=== PATIENT | male | born 2000 | race Caucasian/White ===

== ENCOUNTER 2020-07-28 17:13 | Emergency (ER) | payer SELFPAY ==
--- NOTE | 2020-07-28 | XR_ITS ---
EXAMINATION: XR ANKLE, LEFT CLINICAL INFORMATION: Pain. Swelling. COMPARISON: None TECHNIQUE: AP, lateral, and mortise views of the left ankle. FINDINGS: The bones and soft tissues are normal. No fracture. Alignment is anatomic. Joint spaces are maintained. No joint effusion. IMPRESSION: Normal left ankle.
[2020-07-28 18:08] VITALS: BP 107/63; PULSE 64; RESP 18; TEMP 37.1; O2SAT 99; BMI 23.1
--- NOTE | 2020-07-28 18:56 | ED.LOWEXIN ---
HPI - Extremity Injury (Lower) General Chief Complaint: Extremity Injury, Lower Stated Complaint: ANKLE INJ Time Seen by Provider: 07/28/20 18:51 Source: patient Mode of arrival: ambulatory Limitations: no limitations History of Present Illness HPI Narrative: 19-year-old female presenting to the ED after twisting his left ankle backwards while playing basketball. Denies any head injury or loss of consciousness or any other symptoms complaints or concerns at this time. Related Data Previous Rx's Medication Instructions Recorded ibuprofen 800 mg PO Q8H PRN #14 tab 07/28/20 Allergies Allergy/AdvReac Type Severity Reaction Status Date / Time No Known Allergies Allergy Verified 07/28/20 17:17 [No Known Allergies*] Review of Systems Review of Systems: Yes all other systems are reviewed and are negative Musculoskeletal: Musculoskeletal: Reports as per HPI, Reports abnormal gait ( Limping due to pain), Denies atrophy, Denies deformity, Reports arthralgias, Reports joint swelling, Reports limited range of motion, Denies loss of height, Denies muscle weakness, Denies numbness, Denies stiffness and Denies tingling Neurologic: Reports abnormal gait ( Limping due to pain), Denies numbness and Denies tingling PMFSH Past Medical History Attestation statement: The following information was validated with the patient. Social History Social History Smoked in Last 30 Days: No Use of substances other than those prescribed or required for medical reasons: No Substance Use Type: Marijuana Substance Use Frequency: Weekly Advance Directives: No Advance Directives Information Provided: Yes Physical Exam Vital Signs and I&O and Narrative: Vital Signs and I&O: Vital Signs Temp 98.7 F 07/28/20 18:08 Pulse 64 07/28/20 18:08 Resp 18 07/28/20 18:08 BP 107/63 07/28/20 18:08 Pulse Ox 99 07/28/20 18:08 Intake & Output 07/28/20 07/28/20 07/29/20 06:59 18:59 06:59 Weight 73 kg Body Mass Index 23.1 Const: General: cooperative, healthy appearing, comfortable, no acute distress, well developed, alert, awake and Physically active Nutritional Appearance: average body habitus and well nourished Orientation/consciousness: patient oriented x3 Limitations: no limitations HENMT: Head: Yes normal to inspection, Yes No palpable skull fracture present, Yes normocephalic and Yes atraumatic Ears: hearing grossly normal bilaterally General nose exam: Normal external nose present Face and sinus: Yes normal facial exam Mouth: moist mucous membranes Eyes: General: appearance normal, both eyes and all related structures Visual García: normal visual garcía by confrontation Alignment and Position: alignment normal Periorbital: periorbital findings normal Eyelids: Yes eyelids normal Conjunctivae: conjunctivae normal Sclerae: sclerae normal Pupils: Equal, round and reactive pupils present EOM: EOMs intact bilaterally Neck: Neck: Yes normal visual inspection, Yes full ROM, Yes no lymphadenopathy, Yes no meningeal signs, Yes trachea midline and Yes supple Chest: Chest palpation & inspection: normal inspection of the chest Resp: Effort & Inspection: normal respiratory effort and able to speak in complete sentences Auscultation: clear to auscultation bilaterally, no crackles, no rales, no rhonchi and no wheezes Cardio: Rate: regular rate Rhythm: regular rhythm Heart sounds: S1 normal heart sound present and S2 normal heart sound present Peripheral pulses: Peripheral pulses 2+ throughout GI: Inspection: Yes normal to inspection Palpation (GI): Soft to palpation, nontender and No hepatosplenomegaly present Percussion: Yes normal to percussion Auscultation: normal bowel sounds : General: Yes no CVA tenderness Back/Spine/Pelvis: Back: no CVA tenderness Cervical Spine: normal cervical lordosis and cervical ROM normal Thoracic/Lumbar Spine: thoracic and lumbar spine normal to inspection and thoraco-lumbar ROM normal Skin: General skin exam: no rashes or lesions noted, elasticity normal and turgor normal Trauma: no lacerations or abrasions Wounds: no wounds Hair: normal Nails: normal Neuro: General: patient oriented x3 and no meningeal signs Cranial nerves: Yes CN's II-XII intact bilaterally and Yes Equal, round and reactive pupils present Cognition (Neuro): normal cognition Gait exam (Neuro): Normal gait present Motor exam (neuro): 5/5 motor strength present throughout Extrem: General: Yes normal to inspection, Yes full ROM, Yes capillary refill normal, Yes no clubbing, cyanosis or edema, No no pedal edema, No no calf tenderness, Yes normal gait and No edema Right upper extremity: normal to inspection, full ROM and normal capillary refill; no edema Left upper extremity: normal to inspection, full ROM and normal capillary refill; no edema Right lower extremity: normal to inspection, full ROM and normal capillary refill; no edema Left lower extremity: normal to inspection, full ROM, normal capillary refill and ankle Details: normal to inspection, tenderness Location: of the lateral malleolus, of the medial malleolus and posteriorly, swelling Details: laterally and medially and normal ROM; no abrasions, no lacerations, no ecchymosis, no crepitus, no foreign bodies, no penetrating wound and achilles tendon exam normal; no edema Psych: Appearance: grossly normal and well kempt Mental Status: mental status grossly normal Speech and movement: Normal speech and movement present and Clear speech present Affect: normal affect Attitude: cooperative Thought process: Normal thought process present Thought content: Normal thought content present Insight: Good insight present (Psych) Judgement: Good judgement present (Psych) MDM - Extremity Injury (Lower) Differential Diagnosis Differential diagnosis: Likely ankle sprain and strain Medical Records Attestation: I reviewed the patient's medical records. Imaging Data xray: Radiologist's impression: IMPRESSION: Normal left ankle. Discharge Plan Discharge Clinical Impression: Ankle sprain and strain Patient Disposition: Home, Self-Care Instructions: Ankle Sprain (ED), Crutch Instructions (ED) Prescriptions: New ibuprofen 800 mg tablet 800 mg PO Q8H PRN (Reason: pain) Qty: 14 RF: 0 Referrals: Jennifer Ryan MD [Physician] - 2 weeks (If symptoms persist for longer than 2-3 weeks you will need repeat imaging possibly an MRI) Print Language: Singaporean
== END 2020-07-28 19:15 | disposition home or self-care (01) ==
PROVIDERS: Emergency Provider Internal Medicine
DX: S93.402A Sprain of unspecified ligament of left ankle, initial encounter (principal); M25.572 Pain in left ankle and joints of left foot; X50.1XXA Overexertion from prolonged static or awkward postures, initial encounter; Y93.01 Activity, walking, marching and hiking; Y92.9 Unspecified place or not applicable; Y99.9 Unspecified external cause status
CPT/HCPCS: 73600; 96360; 99283; 99284

== ENCOUNTER 2021-05-24 15:52 | Outpatient (REF) | payer OTHER, SELFPAY | END 2021-05-24 15:53 | disposition home or self-care (01) | LOC: HO.LAB 15:52 | PROVIDERS: Visit Provider Internal Medicine | DX: Z20.822 Contact with and (suspected) exposure to COVID-19 (principal) | CPT/HCPCS: C9803; U0003; U0005 ==

== ENCOUNTER 2021-11-19 16:57 | Emergency (ER) | payer SELFPAY ==
[2021-11-19 18:03] VITALS: BP 120/72; PULSE 77; RESP 16; TEMP 36.9; O2SAT 100; BMI 29.5
[2021-11-19 19:38] VITALS: BP 138/92; PULSE 85; RESP 12; TEMP 36.8; O2SAT 99
--- NOTE | 2021-11-19 20:33 | ED_ITS ---
HPI - Skin/Abscess/Foreign Bdy General Chief complaint: Skin/Abscess/Foreign Body Stated complaint: rt hand finger ?infected Time Seen by Provider: 11/19/21 20:33 Source: patient Mode of arrival: ambulatory Limitations: no limitations History of Present Illness HPI narrative: Patient is a 21 year old male presenting to the emergency department today with right middle finger swelling. Patient states that he regularly bites his nails and over the last few days, he noticed his right middle finger getting swollen. Patient states that earlier today, he put a needle in it and got pus out of it. Patient denies any dizziness, lightheadedness, abdominal pain, nausea, vomiting, fever, chills, blurry vision, double vision, loss of vision, chest pain, difficulty breathing, shortness of breath, back pain, night sweats, pain with urination, increased urinary frequency, increased urinary urgency, blood in his urine or stool, syncope or a near syncopal episode, recent trauma or falls, bowel incontinence, bladder incontinence, bowel retention, bladder retention, or any other complaints at this time. MD complaint: abscess/boil Onset (ago): day(s) Tetanus up to date: yes Severity: mild Relieving factors: none Exacerbating factors: none Context: none Associated symptoms: denies other symptoms Treatments prior to arrival: attempted to drain pus at home Related Data Previous Rx's Medication Instructions Recorded ibuprofen 800 mg tablet 800 mg PO Q8H PRN #14 tab 07/28/20 cephalexin 500 mg capsule 500 mg PO Q6H 7 Days #28 cap 11/19/21 sulfamethoxazole 800 1 tab PO BID 7 Days #14 tab 11/19/21 mg-trimethoprim 160 mg tablet (Bactrim DS) Allergies Allergy/AdvReac Type Severity Reaction Status Date / Time No Known Allergies Allergy Verified 07/28/20 17:17 [No Known Allergies*] Review of Systems Verdana 4l Constitutional: Verdana 4d Verdana 4d Constitutional: Verdana 4d Reports no additional constitutional complaints, Denies chills, Denies fever(s) and Denies night sweats Verdana 4l Eyes: Verdana 4d Verdana 4d Eyes: Verdana 4d Reports no additional eye complaints, Denies blurry vision, Denies change in vision, Denies diplopia, Denies eye discharge, Denies loss of vision and Denies eye pain Verdana 4l ENT: Verdana 4d Denies dizziness Verdana 4l Cardiovascular: Verdana 4d Verdana 4d Cardiovascular: Verdana 4d Reports no additional cardiovascular complaints, Denies chest pain, Denies lightheadedness, Denies Loss of Consciousness and Denies dyspnea Verdana 4l Respiratory: Verdana 4d Verdana 4d Respiratory: Verdana 4d Reports no additional respiratory complaints and Denies dyspnea Verdana 4l Gastrointestinal: Verdana 4d Verdana 4d Gastrointestinal: Verdana 4d Reports no additional gastrointestinal complaints, Denies abdominal pain, Denies melena, Denies hematochezia, Denies change in bowel habits and Denies change in stool character Verdana 4l Genitourinary: Verdana 4d Verdana 4d Genitourinary: Verdana 4d Reports no additional male genitourinary complaints, Denies hematuria, Denies oliguria, Denies difficulty urinating, Denies dysuria, Denies urinary frequency, Denies urinary hesitancy, Denies urinary incontinenceincontinence and Denies urinary urgency Musculoskeletal: Musculoskeletal: Reports no additional musculoskeletal complaints, Denies numbness and Denies tingling Comments: swelling to the right middle finger Neurologic: Denies dizziness, Denies loss of vision, Denies numbness and Denies tingling Psychiatric: Psychiatric: Reports no additional psychiatric complaints Endocrine: Endocrine: Reports no additional endocrine complaints Hematologic/Lymphatic: Hematologic/Lymphatic: Reports no additional hematologic/lymphatic complaints Allergic/Immunologic: Allergic/Immunologic: Reports no additional allergic/immunologic complaints PMFSH Past Medical History Attestation statement: The following information was validated with the patient. Source: old records reviewed Social History Social History Substance Use Type: Marijuana Advance Directives: No Advance Directives Information Provided: Yes Physical Exam Verdana 4l Vital Signs: Verdana 4d Verdana 4d Vital Signs: Verdana 4d Verdana 4Bd Last Vital Signs Verdana 4d Road Packer Operator New 4d Road Packer Operator New 4d Temp 98.3 F 11/19/21 19:38 Road Packer Operator New 4d Pulse 85 11/19/21 19:38 Road Packer Operator New 4d Resp 12 11/19/21 19:38 BP 138/92 H 11/19/21 19:38 Pulse Ox 99 11/19/21 19:38 BMI result Body Mass Index 29.5 Const: General: cooperative, no acute distress, alert and awake Nutritional Appearance: well nourished Orientation/consciousness: patient oriented x3 Limitations: no limitations HENMT: Head: Yes normal to inspection and Yes atraumatic Ears: hearing grossly normal bilaterally and external ears normal General nose exam: Normal external nose present, no nasal discharge noted and no epistaxis Face and sinus: Yes normal facial exam, No abrasion and No laceration Mouth: Normal oral and palatal mucosa present, no drooling and no muffled voice Eyes: General: appearance normal, both eyes and all related structures Periorbital: periorbital findings normal Eyelids: Yes eyelids normal Conjunctivae: conjunctivae normal Pupils: Equal, round and reactive pupils present EOM: EOMs intact bilaterally Neck: Neck: Yes normal visual inspection, Yes full ROM and Yes no lymphadenopathy Chest: Chest palpation & inspection: normal inspection of the chest Resp: Effort & Inspection: normal respiratory effort and able to speak in complete sentences GI: Inspection: Yes normal to inspection Neuro: General: patient oriented x3 and moves all extremities Cranial nerves: Yes Equal, round and reactive pupils present Cognition (Neuro): normal cognition Motor exam (neuro): 5/5 motor strength present throughout Sensory Exam: Normal double simultaneous stimulation for sensation Coordination: sffbgc-qc-srko test normal Extrem: General: Yes normal to inspection, Yes full ROM, Yes capillary refill normal and Yes other (swelling, erythema, and warmth to the right middle digit) Psych: Appearance: grossly normal Mental Status: mental status grossly normal Affect: normal affect Attitude: cooperative Thought process: Normal thought process present Thought content: Normal thought content present Insight: Good insight present (Psych) MDM - Skin/Abscess/Foreign Bdy MDM Narrative Medical decision making narrative: Patient is a 21 year old male presenting to the emergency department today with a paronychia of the right middle finger. Patient's physical exam showed erythema, swelling, and warmth around the nail bed of the right middle digit. However, there was no discrete area to drain. I explained my physical exam findings to the patient. I answered all questions asked by the patient. I stressed the importance of the patient taking his medication as prescribed. I stressed the importance of the patient following up with his primary care provider. I stressed the importance of the patient returning to the emergency department immediately if his symptoms were to worsen or if he were to develop any dizziness, shortness of breath, difficulty breathing, chest pain, blurry vision, loss of vision, nausea, vomiting, abdominal pain, fever, chills, back pain, or any other complaints. Patient verbalized agreement and understanding with this treatment plan and discharge Differential Diagnosis Differential diagnosis: Likely abscess of skin or subcutaneous tissue, cellulitis and impetigo Medical Records Attestation: I reviewed the patient's medical records. Discharge Plan Discharge Clinical Impression: Paronychia of finger Patient Disposition: Home, Self-Care Instructions: Paronychia (ED) Additional Instructions: Call to discuss finding and establishing with a primary care provider. Prescriptions: New cephalexin 500 mg capsule 500 mg PO Q6H 7 Days Qty: 28 0RF sulfamethoxazole-trimethoprim [Bactrim DS] 800-160 mg tablet 1 tab PO BID 7 Days Qty: 14 0RF No Action ibuprofen 800 mg tablet 800 mg PO Q8H PRN (Reason: pain) Qty: 14 0RF Interventions: ED Discharge Assessment Last Done: 11/19/21 20:51 Discharge Date/Time: 11/19/21 20:59 Print Language: Liberian
== END 2021-11-19 20:59 | disposition home or self-care (01) ==
PROVIDERS: Emergency Provider Emergency Medicine Emergency Medical Services
DX: L03.011 Cellulitis of right finger (principal); Z79.899 Other long term (current) drug therapy
CPT/HCPCS: 99283

== ENCOUNTER 2022-09-08 22:10 | Emergency (ER) | payer SELFPAY ==
[2022-09-08 22:11] VITALS: BP 148/77; PULSE 64; RESP 18; TEMP 36.4; O2SAT 98; BMI 26.6
--- OUTSIDE RECORDS SUMMARY | 2022-09-09 00:12 | XMS_ITS | Continuity of Care Document ---
:2000 Author Organization [facility] Address [address] [place] [address]- Care Team Providers Name Role Phone Denise Khoury MD Primary Care Physician Encounter [facility] Date(s): 10/07/19 - 10/17/19 [facility] [address] [place] [id number]- Attending Physician: Admchaitanya, Pipo Allergies, Adverse Reactions, Alerts Substance Reaction Severity Status NKA Active Immunizations Given and Recorded Vaccine Date Status Refusal Reason Meningococcal Conjugate Vaccine 01/17/17 Given Meningococcal Conjugate Vaccine1 02/14/13 Given influenza virus vaccine, inactivated 01/17/17 Given influenza virus vaccine, live 08/14/14 Given Human Papillomavirus Vaccine 08/14/14 Given Human Papillomavirus Vaccine 04/23/13 Given Human Papillomavirus Vaccine2 02/14/13 Given tetanus/diphtheria/pertussis, acel(Tdap)3 02/14/13 Given Varicella Virus Vaccine 01/03/07 Given Varicella Virus Vaccine4 03/13/01 Given Measles/Mumps/Rubella Virus Vaccine5 01/12/05 Given Measles/Mumps/Rubella Virus Vaccine6 03/13/01 Given diphtheria/tetanus/pertussis, acel(DTaP)7 01/12/05 Given diphtheria/tetanus/pertussis, acel(DTaP)8 02/01/02 Given diphtheria/tetanus/pertussis, acel(DTaP)9 06/06/00 Given diphtheria/tetanus/pertussis, acel(DTaP)10 04/04/00 Given diphtheria/tetanus/pertussis, acel(DTaP)11 01/26/00 Given Poliovirus Vaccine, Retcttaifew84 02/01/02 Given Poliovirus Vaccine, Riopywizjch64 06/06/00 Given Poliovirus Vaccine, Ycwotqzraft09 04/04/00 Given Poliovirus Vaccine, Hfyktjqvzsd77 01/26/00 Given Pneumococcal Conjugate (PCV7) (oldterm)16 03/13/01 Given Pneumococcal Conjugate (PCV7) (oldterm)17 09/08/00 Given Pneumococcal Conjugate (PCV7) (oldterm)18 06/06/00 Given Hepatitis B Vaccine (old term)19 09/08/00 Given Hepatitis B Vaccine (old term)20 99 Given Hepatitis B Vaccine (old term)21 99 Given Haemophilus B Conj Vaccine (oldterm)22 09/08/00 Given Haemophilus B Conj Vaccine (oldterm)23 06/06/00 Given Haemophilus B Conj Vaccine (oldterm)24 04/04/00 Given Haemophilus B Conj Vaccine (oldterm)25 01/26/00 Given 1Admin Note: MENACTRA GIVEN..VIS GIVEN DATED 08/05/20112Admin Note: vis given today for 12/14/20113Admin Note: vis given 11/15/20114Admin Note: PKNHVJQ5Xxsii Note: NEP7Zduvf Note: VIV6Hiczz Note: WPqk2Ehkay Note: FAvk7Rlsxd Note: DTap10 Admin Note: SWfc21Npbfs Note: CPid60Mltuy Note: XPW33Btxgy Note: PKX71Mxzrv Note: HBR50Kthkc Note: LDX11Qhobs Note: WVYXQWM93Odohl Note: IYPGNQD41Eyynq Note: JIXHEPF68Tpocq Note: HEP K71Ghrka Note: HEP Q76Aujlb Note: HEP A90Mcdkn Note: YTN90Jwllf Note: MTE30Bciwu Note: LTQ03Ygbky Note: HIB Medications fluoride 1 mg oral tablet, chewable 1 tablet = 1 mg, By Mouth, Daily at bedtime, # 90 tablet, 0 Refills, Maintenance, 02/26/14 9:52:08, 1 tablet By Mouth Daily at bedtime,x30 days Start Date: 02/26/14 Stop Date: 03/28/14 Status: Ordered Problem List Condition Effective Dates Status Health Status Informant ADHD - Attention deficit disorder with Active hyperactivity(Confirmed) Social History Social History Type Response Smoking Status Never smoker; Tobacco user i n household: No entered on: 01/17/17 Sex
--- OUTSIDE RECORDS SUMMARY | 2022-09-09 00:12 | XMS_ITS | Continuity of Care Document ---
:2000 Author Organization [facility] Address [address] [place] [id number]- Care Team Providers Name Role Phone Denise Khoury MD Primary Care Physician Encounter [facility] Date(s): 08/06/19 - 11/06/19 [facility] [address] [place] [id number]- Attending Physician: Denise Khoury MD Admitting Physician: Denise Khoury MD Allergies, Adverse Reactions, Alerts Substance Reaction Severity [...] Given diphtheria/tetanus/pertussis, acel(DTaP)11 01/26/00 Given Poliovirus Vaccine, Oisaezqwybk34 02/01/02 Given Poliovirus Vaccine, Oqkzguaifpg28 06/06/00 Given Poliovirus Vaccine, Sltrrlkmbma35 04/04/00 Given Poliovirus Vaccine, Legfxzgrzdu86 01/26/00 Given Pneumococcal Conjugate (PCV7) (oldterm)16 03/13/01 [...] for 12/14/20113Admin Note: vis given 11/15/20114Admin Note: KLWRXQR9Ubfmi Note: OVC7Txlaq Note: RMA4Qgzbb Note: WQrg0Cnvpw Note: TDoh3Tbhqw Note: DTap10 Admin Note: XSqk16Iffvu Note: CQgi46Plwot Note: AVB40Nhnxv Note: NOD42Bjzwq Note: AFT01Rcemo Note: LGE41Myjdo Note: CJQFHHF34Qrzto Note: ZSADNXS98Zxbjz Note: NIJBQHQ38Lvwjv Note: HEP P76Pptlo Note: HEP O90Fzyta Note: HEP M09Hzeyv Note: UOP05Ifwms Note: TZC78Uijho Note: XUU05Hsxrt Note: HIB Medications fluoride 1 mg oral [...]
--- NOTE | 2022-09-09 00:14 | ED.DENTAL ---
HPI - Dental/Oral General Chief complaint: Dental/Oral Stated complaint: dental pain ?infection Time Seen by Provider: 09/09/22 00:05 Source: patient Mode of arrival: ambulatory Limitations: no limitations History of Present Illness HPI Narrative: Patient comes to the emergency room complaining of dental pain in the left mandible for 2 weeks. Patient states that he has been trying to take Tylenol and ibuprofen but without relief. Patient denies fever or chills, no injury Related Data Previous Rx's Medication Instructions Recorded ibuprofen 800 mg tablet 800 mg PO Q8H PRN pain #14 tabs 07/28/20 cephalexin 500 mg capsule 500 mg PO Q6H 7 days #28 caps 11/19/21 sulfamethoxazole 800 1 tab PO BID 7 days #14 tabs 11/19/21 mg-trimethoprim 160 mg tablet (Bactrim DS) acetaminophen 500 mg tablet 500 mg PO Q6H PRN fever or pain 09/09/22 #20 tabs ketorolac 10 mg tablet 10 mg PO TID PRN pain #7 tabs 09/09/22 penicillin V potassium 500 mg 500 mg PO TID #29 tabs 09/09/22 tablet Allergies Allergy/AdvReac Type Severity Reaction Status Date / Time No Known Allergies Allergy Verified 07/28/20 17:17 [No Known Allergies*] Review of Systems Review of Systems: Constitutional : No Weight loss, No Fever, No Chills, No Night Sweats, No Fatigue, No Malaise ENT/Mouth : Complaining of dental pain, No Hearing loss, No Ear Pain, No Nasal Congestion, No Sinus Pain, No Hoarseness, No sore throat, No Rhinorrhea, No Swallowing Difficulty Eyes: No Eye Pain, No Swelling, No Redness, No Foreign Body, No Discharge, No Vision Changes Cardiovascular : No Chest Pain, No SOB, No Dyspnea on Exertion, No Orthopnea, No Edema, No Palpitations Respiratory : No Cough, No Sputum, No Wheezing, No Smoke Exposure, No Dyspnea Gastrointestinal : No Nausea, No Vomiting, No Diarrhea, No Constipation, No abdominal Pain, No Hematochezia, No Melena Genitourinary : no irregular bleeding, No Dysuria, No Urinary Frequency, No Hematuria, No Urinary Incontinence, No Urgency, No Flank Pain, No Urinary Flow Changes, No Hesitancy Musculoskeletal : No joint pain, No Myalgias, No Joint Swelling Skin : No Skin Lesions, No rash Neuro : No Weakness, No Numbness, No Paresthesias, No Loss of Consciousness, No Dizziness, No Headache Psych : No Anxiety/Panic, No Depression, No SI/HI/AH/VH, No Social Issues, Heme/Lymph: No Bruising, No Bleeding,No Lymphadenopathy Endocrine : No Polyuria, No Polydipsia, No Temperature Intolerance PMFSH Social History Social History Substance Use Type: Marijuana Advance Directives: No Advance Directives Information Provided: Yes Physical Exam Vital Signs: Vital Signs: Last Vital Signs Temp 97.6 F 09/08/22 22:11 Pulse 64 09/08/22 22:11 Resp 18 09/08/22 22:11 BP 148/77 H 09/08/22 22:11 Pulse Ox 98 09/08/22 22:11 O2 Del Method 09/08/22 22:11 BMI result Body Mass Index 26.6 Const: Other: Appearance: Alert. Oriented X3. No acute distress. Eyes: Pupils equal, round and reactive to light. ENT: Pharynx normal. Pain to palpation over the gum in the maxillary side on the left, no visualized abscess, fairly good dentition Neck: Normal inspection. Neck supple. No lymph nodes noted. No crepitus CVS: Normal heart rate and rhythm. Pulses normal. Normal S1 and S2 Respiratory: No respiratory distress. Breath sounds normal. No Wheezing. No rales Abdomen: Soft and nontender. No rigidity. No distention. Skin: Skin warm and dry. Normal skin color. Normal skin turgor. Extremities: No lower extremity edema. No Lacerations. No Rash Neuro: Oriented X 3. No motor deficit. No sensory deficit. Moving all extremities. No slurred speech. CN 2 through 12 grossly intact Psych: calm, cooperative, normal affect Course Course Course Narrative: Patient was given 1 dose of IM Toradol and penicillin p.o.. Patient instructed to follow-up with his dental Discharge Plan Discharge Clinical Impression: Toothache Patient Disposition: Home, Self-Care Instructions: Toothache (ED) Additional Instructions: Please follow-up with your primary care physician tomorrow. If you have any worsening or new symptoms, please return to the emergency room or call 911 Prescriptions: New penicillin V potassium 500 mg tablet 500 mg PO TID Qty: 29 0RF ketorolac 10 mg tablet 10 mg PO TID PRN (Reason: pain) Qty: 7 0RF Rx Instructions: Do not use ibuprofen/NSAIDs with this medication, only Tylenol if needed acetaminophen 500 mg tablet 500 mg PO Q6H PRN (Reason: fever or pain) Qty: 20 0RF No Action ibuprofen 800 mg tablet 800 mg PO Q8H PRN (Reason: pain) Qty: 14 0RF cephalexin 500 mg capsule 500 mg PO Q6H 7 Days Qty: 28 0RF sulfamethoxazole-trimethoprim [Bactrim DS] 800-160 mg tablet 1 tab PO BID 7 Days Qty: 14 0RF
[2022-09-09] MEDS: Penicillin V Potassium 250 MG TABLET 500 MG PO (00:35)
[2022-09-09] MEDS: Ketorolac Tromethamine 60 MG/2 ML VIAL IM (00:35)
[2022-09-09 00:39] VITALS: PULSE 57; RESP 20; O2SAT 100
== END 2022-09-09 00:42 | disposition home or self-care (01) ==
PROVIDERS: Emergency Provider Emergency Medicine
DX: K08.89 Other specified disorders of teeth and supporting structures (principal); Z79.899 Other long term (current) drug therapy
CPT/HCPCS: 96372; 99284; J1885

== ENCOUNTER 2022-10-28 14:16 | Emergency (ER) | payer SELFPAY ==
--- NOTE | 2022-10-28 15:28 | ED.MALEGU ---
HPI - Male Genitourinary General Chief complaint: Urogenital-Male Stated complaint: std test Time Seen by Provider: 10/28/22 15:28 History of Present Illness HPI Narrative: Patient is a 21-year-old male presents to the emergency department requesting STD testing. He reports discomfort with urination, and a small amount of white/yellow penile discharge, symptom onset 1 week ago. Denies any swelling, lesions, wounds. Denies fevers, chills, nausea, vomiting, back pain, flank pain. He is requesting testing for sexually transmitted infections, has no known positive contacts. He does report a new sexual partner with unprotected intercourse 1 week ago. Related Data Previous Rx's Medication Instructions Recorded ibuprofen 800 mg tablet 800 mg PO Q8H PRN pain #14 tabs 07/28/20 cephalexin 500 mg capsule 500 mg PO Q6H 7 days #28 caps 11/19/21 sulfamethoxazole 800 1 tab PO BID 7 days #14 tabs 11/19/21 mg-trimethoprim 160 mg tablet (Bactrim DS) acetaminophen 500 mg tablet 500 mg PO Q6H PRN fever or pain 09/09/22 #20 tabs ketorolac 10 mg tablet 10 mg PO TID PRN pain #7 tabs 09/09/22 penicillin V potassium 500 mg 500 mg PO TID #29 tabs 09/09/22 tablet doxycycline hyclate 100 mg capsule 100 mg PO BID #14 caps 10/28/22 Allergies Allergy/AdvReac Type Severity Reaction Status Date / Time No Known Allergies Allergy Verified 07/28/20 17:17 [No Known Allergies*] Review of Systems Review of Systems: Genitourinary: Dysuria, penile discharge as noted in HPI Yes all other systems are reviewed and are negative [facility] Past Medical History Attestation statement: The following information was validated with the patient. Social History Social History Substance Use Type: Marijuana Advance Directives: No Advance Directives Information Provided: Yes Physical Exam Vital Signs: Vital Signs: Last Vital Signs Temp 97.7 F 10/28/22 15:29 Pulse 65 10/28/22 15:29 Resp 20 10/28/22 15:29 BP 114/78 10/28/22 15:29 Pulse Ox 99 10/28/22 15:29 O2 Del Method 10/28/22 15:29 BMI result Body Mass Index 26.5 Appearance: Alert.?Oriented to person, place and time. No acute distress.?Normal affect. Eyes: Pupils equal, round and reactive to light.? ENT: Pharynx normal.?? Neck: Normal inspection.? Neck supple.?? CVS: Heart sounds normal. Normal heart rate and rhythm.? Pulses normal.?? Respiratory: No respiratory distress.? Lung sounds clear to auscultation bilaterally?? Abdomen: Soft and non-tender. No CVA tenderness. Declines physical examination of the genitals. Skin: Skin warm and dry.? Normal skin color.? Neuro: Moves all extremities spontaneously. Sensation intact bilaterally. Ambulates with normal steady gait. Medications Administered Discontinued Medications Generic Name Dose Route Start Last Admin Trade Name Freq PRN Reason Stop Dose Admin Ceftriaxone Sodium 500 mg/ 0 mg 10/28/22 16:13 10/28/22 16:30 Lidocaine HCl 1 ml IM 10/28/22 16:14 500 kit ONCE ONE Administration Medical Decision Making Medical Decision Making MDM Narrative: Patient is a 21-year-old male presents to the emergency department requesting STD testing. Recent new sexual partner with unprotected intercourse. Urinalysis obtained does not appear consistent with urinary tract infection. Sent testing for chlamydia and gonorrhea which are pending at this time. Treated prophylactically with ceftriaxone 500 mg IM, and sent prescription for doxycycline the patient's pharmacy. Discussed safe sex practices. Denies any swelling, lesions, wounds, and declines physical examination of the genitals. Patient advised cannot exclude potential for syphilis, which is slough, or other rash appearing infections without physical examination, he states he will follow-up with his doctor if his symptoms do not improve. Patient advised he would be contacted by phone should his testing results as positive. He verbalized understanding. Departed in stable condition. Lab Data Labs: Lab Results 10/28/22 Range/Units 15:47 Urine Color Yellow Urine Appearance Clear Urine pH 6.5 (5.0-9.0) Ur Specific Adams 1.020 (1.005-1.025) Urine Protein Negative (Neg-Trace) mg/dL Urine Glucose (UA) Negative (Negative) mg/dL Urine Ketones Negative (Negative) mg/dL Urine Blood Small (1+) H (Negative) Urine Nitrite Negative (Negative) Ur Leukocyte Esterase Negative (Negative) Urine RBC 3-5 H (0-2) /HPF Urine WBC 0-5 (0-5) /HPF Ur Squamous Epith Cells 0-2 (0-2) /HPF Urine Bacteria None Seen (None Seen) Hyaline Casts 0-2 (0-2) /LPF Discharge Plan Discharge Clinical Impression: Sexually transmitted infection Patient Disposition: Home, Self-Care Instructions: Male Condom Use (ED) Additional Instructions: You received an injection of ceftriaxone while in the emergency department today. A prescription for doxycycline was sent to your pharmacy, please take this twice daily for 7 days. Should her testing results as positive you will receive a phone call within the next few days. Follow-up with your primary care provider for any persistent symptoms. Return back to emergency department with any new or worsening symptoms or concerns. Prescriptions: New doxycycline hyclate 100 mg capsule 100 mg PO BID Qty: 14 0RF No Action ibuprofen 800 mg tablet 800 mg PO Q8H PRN (Reason: pain) Qty: 14 0RF penicillin V potassium 500 mg tablet 500 mg PO TID Qty: 29 0RF ketorolac 10 mg tablet 10 mg PO TID PRN (Reason: pain) Qty: 7 0RF Rx Instructions: Do not use ibuprofen/NSAIDs with this medication, only Tylenol if needed acetaminophen 500 mg tablet 500 mg PO Q6H PRN (Reason: fever or pain) Qty: 20 0RF cephalexin 500 mg capsule 500 mg PO Q6H 7 Days Qty: 28 0RF sulfamethoxazole-trimethoprim [Bactrim DS] 800-160 mg tablet 1 tab PO BID 7 Days Qty: 14 0RF Referrals: Physician,Unknown J [Primary Care Provider] - Interventions: ED Discharge Assessment Last Done: 10/28/22 16:34 Discharge Date/Time: 10/28/22 16:34
[2022-10-28 15:29] VITALS: BP 114/78; PULSE 65; RESP 20; TEMP 36.5; O2SAT 99; BMI 26.5
[2022-10-28 16:00] LABS: Appearance Urine Clear; Color Urine Yellow; Glucose Urine UA Negative (Negative); Leukocyte Esterase Urine Negative (Negative); Nitrite Urine Negative (Negative); PH 6.5 (5.0-9.0); UMIC TRIGGER UACC YES; Urine Blood Small (1+) (Negative); Urine Ketones Negative (Negative); Urine Protein Negative (Neg-Trace)
[2022-10-28 16:18] LABS: Bacteria Urine None Seen (None Seen); Hyaline Casts Urine 0-2 /LPF (0-2); Squamous Epithelial Cell Urine 0-2 /HPF (0-2); WBC Urine 0-5 /HPF (0-5)
[2022-10-28] MEDS: cefTRIAXone sodium 500 MG, Lidocaine HCl 1 % MPF 1 ML IM (16:30)
[2022-10-28 18:28] LABS: CT PCR NOT DETECTED (Not Detect.); NG PCR NOT DETECTED (Not Detect.)
== END 2022-10-28 16:34 | disposition home or self-care (01) ==
PROVIDERS: Nurse Practitioner Family; Emergency Provider Emergency Medicine
DX: R30.0 Dysuria (principal); A64 Unspecified sexually transmitted disease; Z79.899 Other long term (current) drug therapy
CPT/HCPCS: 0353U; 81001; 81003; 96372; 99282; 99284; J0696

== ENCOUNTER 2024-09-12 22:15 | Emergency (ER) | payer MEDICAID, SELFPAY ==
[2024-09-12 22:30] VITALS: BP 123/68; PULSE 75; RESP 20; TEMP 36.4; O2SAT 96; BMI 29.5
--- NOTE | 2024-09-13 00:18 | ED.EYEPROB ---
HPI - Eye Problem General Chief complaint: Eye Problems Stated complaint: left eye/something in it Time Seen by Provider: 09/13/24 00:00 Source: patient Mode of arrival: ambulatory Limitations: no limitations History of Present Illness ED Provider: megan NDIAYE Narrative: patient noticed irritation and redness in the left eye for last 4 days does not know what cause of redness no foreign body no visual changes patient does not wear contact lenses Related Data Previous Rx's ?Medication ?Instructions ?Recorded ibuprofen 800 mg tablet 800 mg PO Q8H PRN pain #14 tabs 07/28/20 cephalexin 500 mg capsule 500 mg PO Q6H 7 days #28 caps 11/19/21 sulfamethoxazole 800 1 tab PO BID 7 days #14 tabs 11/19/21 mg-trimethoprim 160 mg tablet (Bactrim DS) acetaminophen 500 mg tablet 500 mg PO Q6H PRN fever or pain 09/09/22 #20 tabs ketorolac 10 mg tablet 10 mg PO TID PRN pain #7 tabs 09/09/22 penicillin V potassium 500 mg 500 mg PO TID #29 tabs 09/09/22 tablet doxycycline hyclate 100 mg capsule 100 mg PO BID #14 caps 10/28/22 tobramycin 0.3 % eye drops 1 drp ophthalmic (eye) Q4H #5 mL 09/13/24 Allergies Allergy/AdvReac Type Severity Reaction Status Date / Time No Known Allergies Allergy Verified 09/12/24 22:32 [No Known Allergies*] Review of Systems Review of Systems: Yes all other systems are reviewed and are negative PMFSH Social History Social History Substance Use Type: Marijuana Advance Directives: No Advance Directives Information Provided: No Physical Exam Vital Signs: Vital Signs: Last Vital Signs Temp 97.6 F 09/13/24 01:33 Pulse 75 09/13/24 01:33 Resp 20 09/13/24 01:33 BP 123/68 09/13/24 01:33 Pulse Ox 96 09/13/24 01:33 O2 Del Method Room Air 09/13/24 01:33 BMI result Body Mass Index 29.5 Appearance: Alert. Oriented X3. No acute distress. ENT: Pharynx normal. Oral Mucosa moist eye: Left conjunctival inflammation fluorescein test negative for any ulceration no foreign body seen anterior chamber normal Neck: Normal inspection. Neck supple. CVS: Normal heart rate and rhythm. Pulses normal. Respiratory: No respiratory distress. Equal air entry bilateral, no wheezing/rales/rhonchi Skin: Skin warm and dry. Normal skin color. Normal skin turgor. Extremities: No lower extremity edema. Neuro: Oriented X 3. Medications Administered Discontinued Medications Generic Name Dose Route Start Last Admin Trade Name Freq PRN Reason Stop Dose Admin Fluorescein Sodium 1 strip 09/13/24 00:18 09/13/24 01:00 Fluorescein Sodium Strip EYE-LEFT 09/13/24 00:19 1 strip ONCE ONE Administration Tobramycin Sulfate 2 drop 09/13/24 00:18 09/13/24 01:00 Tobramycin Sulfate 0.3% Rut Op 5 Ml Btl EYE-LEFT 09/13/24 00:19 2 drop ONCE ONE Administration Medical Decision Making Medical Decision Making [facility] Narrative: patient with bacterial conjunctivitis will prescribe tobramycin negative for corneal ulcer Discharge Plan Discharge Clinical Impression: Bacterial conjunctivitis Patient Disposition: Home, Self-Care Instructions: Conjunctivitis (ED) Additional Instructions: local care as advised tobramycin eye drops 1-2 drops every 4 hours until completely better Prescriptions: New tobramycin 0.3 % drops 1 drp ophthalmic (eye) Q4H Qty: 5 0RF No Action ibuprofen 800 mg tablet 800 mg PO Q8H PRN (Reason: pain) Qty: 14 0RF penicillin V potassium 500 mg tablet 500 mg PO TID Qty: 29 0RF ketorolac 10 mg tablet 10 mg PO TID PRN (Reason: pain) Qty: 7 0RF Rx Instructions: Do not use ibuprofen/NSAIDs with this medication, only Tylenol if needed acetaminophen 500 mg tablet 500 mg PO Q6H PRN (Reason: fever or pain) Qty: 20 0RF cephalexin 500 mg capsule 500 mg PO Q6H 7 Days Qty: 28 0RF sulfamethoxazole-trimethoprim [Bactrim DS] 800-160 mg tablet 1 tab PO BID 7 Days Qty: 14 0RF doxycycline hyclate 100 mg capsule 100 mg PO BID Qty: 14 0RF Interventions: ED Discharge Assessment Last Done: 09/13/24 01:33 Discharge Date/Time: 09/13/24 01:34 Print Language: Occitan
[2024-09-13] MEDS: Fluorescein Sodium STRIP 1 STRIP EYE-LEFT (01:00)
[2024-09-13] MEDS: Tobramycin Sulfate 0.3% Sol Op 5 ML BTL 2 DROP EYE-LEFT (01:00)
[2024-09-13 01:33] VITALS: BP 123/68; PULSE 75; RESP 20; TEMP 36.4; O2SAT 96
== END 2024-09-13 01:34 | disposition home or self-care (01) ==
PROVIDERS: Emergency Provider Internal Medicine
DX: H10.9 Unspecified conjunctivitis (principal); H57.12 Ocular pain, left eye
CPT/HCPCS: 99282; 99283